=== PATIENT | female | born 1985 | race Native Hawaiian/Other Pacific Islander ===

== ENCOUNTER 2017-05-23 03:54 | Emergency (ER) | payer OTHER ==
[~2017-05-23] VITALS: Ht 157.5 cm; Wt 63.5 kg
[2017-05-23 05:22] VITALS: BP 118/88; TEMP 97.6
== END 2017-05-23 05:28 | disposition home or self-care (01) ==
LOC: ED 03:54
DX: M94.0 Chondrocostal junction syndrome [Tietze] (principal); S29.012A Strain of muscle and tendon of back wall of thorax, initial encounter
CPT/HCPCS: 93005; 96372; 99283; J1885; J2930

== ENCOUNTER 2018-03-18 12:35 | Emergency (ER) | payer OTHER ==
[~2018-03-18] VITALS: Ht 160 cm; Wt 72.6 kg
[2018-03-18 13:52] LABS: PLATELET COUNT 306 K/uL (152-353)
[2018-03-18 13:56] LABS: POTASSIUM 3.5 mmol/L (3.6-5.2)
[2018-03-18 15:05] VITALS: BP 120/80; TEMP 97.2
== END 2018-03-18 15:05 | disposition home or self-care (01) ==
LOC: ED 12:35
DX: N10 Acute pyelonephritis (principal)
CPT/HCPCS: 36415; 80053; 81000; 85027; 87077; 87086; 87088; 87186; 99283

== ENCOUNTER 2020-12-05 11:24 | Outpatient (CLI) | payer BC, OTHER | END 2020-12-05 19:56 | disposition home or self-care (01) | LOC: LAB 11:24 | PROVIDERS: ATTEND Nurse Practitioner Family | DX: R53.83 Other fatigue (principal); R05 Cough; R51.9 Headache, unspecified; Z11.59 Encounter for screening for other viral diseases | CPT/HCPCS: 87635; U0003 ==